=== PATIENT | male | born 1965 | race Caucasian/White ===

== ENCOUNTER 2016-05-02 16:35 | Emergency (ER) | payer OTHER ==
[2016-05-02] MEDS ORDERED: XYLOCAINE-MPF 1% INJ ONE (17:46)
[2016-05-02] MEDS ORDERED: XYLOCAINE 1% INJ ONE (17:46)
--- NOTE | 2016-05-02 17:52 | PROVIDER DOCUMENTATION ---
HPI-Rash/Wound/ReCheck - General Chief Complaint: Work Related Injury Stated Complaint: WORK RELATED INJURY Time Seen by Provider: 05/02/16 17:40 Source: patient Allergies/Adverse Reactions: Allergies Allergy/AdvReac Type Severity Reaction Status Date / Time No Known Allergies Allergy Verified 05/02/16 18:00 Home Medications: Home Medication List Medication Instructions Recorded Confirmed Last Taken Type Docusate Sodium [Colace] 400 mg PO QHS 08/12/13 05/02/16 05/01/16 History Lisinopril 20 mg PO DAILY 08/12/13 05/02/16 05/02/16 05:00 History Pantoprazole Sodium [Protonix] 20 mg PO DAILY 08/12/13 05/02/16 05/02/16 05:00 History Cyclobenzaprine [Flexeril] 10 mg PO QHS 05/02/16 05/02/16 05/01/16 History Hydroxyzine Pamoate [Vistaril] 25 mg PO QHS 05/02/16 05/02/16 05/01/16 History [place] Carbonate 900 mg PO DAILY 05/02/16 05/02/16 05/02/16 05:00 History Nabumetone [Relafen] 750 mg PO BID 05/02/16 05/02/16 05/02/16 05:00 History - History of Present Illness-Dermatology Nature of Presenting Problem: 51 year old WM presents with c/o laceration above left eye. pt reports he was attempting to leave work in a hurry and tripped over a radio sitting on the floor, falling and striking his left eyebrow onto a concrete floor. pt denies loc and has full recollection of the event. he denies head, neck or back pain. pt is in no distress. Location: reports: face Quality: reports: painful Severity: reports: mild Onset/Duration: reports: just prior to arrival Timing: reports: still present, improving Context/Associated Symptoms: reports: laceration Identifiable cause?: Yes Locality of Occurance: Work Similar Symptoms Previously?: No Recently seen or treated by another doctor?: No Review of Systems - Adult - REVIEW OF SYSTEMS - ADULT Constitutional: reports: no symptoms reported. denies: chills, fever, fatique Eyes: reports: see HPI, eye pain (left orbit pain), other. denies: discharge, blurred vision, double vision Ears, Nose, Mouth & Throat: reports: no symptoms reported. denies: ear discharge, ear pain, nose pain, loose teeth, throat pain, throat swelling Cardiovascular: reports: no symptoms reported. denies: chest pain, palpitations , syncope Respiratory: reports: no symptoms reported. denies: chronic cough, cough, shortness of breath, wheezing Gastrointestinal: reports: no symptoms reported. denies: abdominal pain, diarrhea, nausea, vomiting Genitourinary: reports: no symptoms reported. denies: dysuria, hematuria Musculoskeletal: reports: no symptoms reported. denies: bone pain, back pain, joint pain, joint swelling, neck pain Integumentary: reports: no symptoms reported, other (laceration). denies: hives , itching, skin sores/ulcer Neurological: reports: no symptoms reported. denies: ataxia, dizziness/vertigo , headache/migraines, loss of balance, numbness, paresthesia, seizure, slurred speech, syncope, tremors Psychiatric: reports: no symptoms reported Endocrine: reports: no symptoms reported Hematologic/Lymphatic: reports: no symptoms reported Allergic/Immunologic: reports: no symptoms reported All Other Systems: Reviewed and Negative Past History - Adult - PAST MEDICAL HISTORY-ADULT Review of Records: reports: Old Records Reviewed, Nursing Assessment Review, Medications Reviewed, Social history reviewed & non-contributory. Major Childhood Illnesses: reports: denies history Cardiovascular: reports: denies history Respiratory: reports: denies history Gastrointestinal: reports: GERD Obstetrical/Gynecological: reports: denies history Genitourinary: reports: denies history Musculoskeletal: reports: denies history Neurological: reports: denies history Psychiatric: reports: psychiatric problems Endocrine/Immune: reports: denies history Other Conditions: reports: denies history - FAMILY HISTORY Family History: reviewed, not pertinent - SOCIAL HISTORY Smoking: quit greater than 1 year Substance Use: none/never Alcohol Use Frequency: never Physical Exam-General - PHYSICAL EXAM-ADULT Initial Vital Signs Reviewed: Yes - CONSTITUTIONAL General Appearance: appears well, alert, no apparent distress. negative: mild distress, moderate distress, severe distress, lethargic, slow to respond, obtunded, combative - EYES Eyes: PERRL/EOMI, pink conjunctivae, other (left eyebrow with laceration, 3cm). negative: conjuctival exudate, pale conjunctivae, sclera injected, scleral icterus, subconjunctival hemorrhage - HEAD, EARS, NOSE, MOUTH & THROAT HENMT: normocephalic/atraumatic, moist mucous membranes, normal ENT inspection. negative: frontal tenderness, maxillary tenderness - NECK Neck: non-tender, full range of motion, supple, normal inspection. negative: C- spine tenderness, limited range of motion, tender lateral, tender midline - RESPIRATORY Respiratory: chest non-tender, lungs clear, normal breath sounds, no pleuratic chest pain, no respiratory distress, no accessory muscle use. negative: respiratory distress, decreased breath sounds, accessory muscle use, crackles, rales, rhonchi, stridor, wheezing - CARDIOVASCULAR Cardiovascular: normal peripheral pulses, regular rate, rhythm, no edema, no gallop, no JVD, no murmur - CHEST (BREASTS) Chest/Breast: no tenderness - GASTROINTESTINAL (ABDOMEN) Abdominal Exam: normal bowel sounds, non tender, soft - GENITOURINARY Male Genitalia: deferred Rectal Exam: deferred Hemoccult Exam: deferred - LYMPHATIC Lymphatic: no adenopathy - MUSCULOSKELETAL Back Exam: normal inspection, no CVA tenderness, no vertebral tenderness. negative: CVA tenderness, decreased range of motion, swelling, vertebral tenderness Extremity: normal range of motion, non-tender, normal gait, normal inspection, no pedal edema, no calf tenderness, normal capillary refill. negative: deformity, erythema, inflammation, swelling, tenderness Peripheral Pulses: radial (R): 3+, radial (L): 3+, dorsalis-pedis (R): 3+, dorsalis-pedis (L): 3+ - SKIN Integumentary: normal color, normal turgor, warm/dry, laceration(s) (left eyebrow) - NEUROLOGIC Neurologic: grossly normal, no motor/sensory deficits. negative: EOM palsy, focal weakness, motor weakness, sensory deficit - PSYCHIATRIC Psych/Mental Status: normal mood/affect, normal thought content, normal thought process, oriented x 3 Progress - PLAN OF CARE/RESULTS Progress/Plan/Lab Results: Orders Category Date Time Status Suture Tray Set-Up DIRECTED Care 05/02/16 17:46 Active [facility] URINE DRUG SCREEN Stat Lab 05/02/16 16:53 Uncollected Lidocaine 1% Pf [Xylocaine-Mpf 1%] Med 05/02/16 17:46 Discontinued See Dose Instructions INJ NOW ONE Lidocaine 1% [Xylocaine 1%] Med 05/02/16 17:46 Discontinued 20 ml INJ NOW ONE Vital Signs - 24 hr 05/02/16 16:47 Temperature 98.1 F Pulse Rate 79 Respiratory 18 Rate Blood Pressure 143/80 O2 Sat by Pulse 100 Oximetry Procedures - LACERATION/WOUND REPAIR/FB Left Eye Wound Location: Other: left eyebrow Wound Length: 3.5cm Wound's Depth, Shape: into muscle, irregular, flap, contused tissue Wound Explored/Foreign Body: clean, no foreign body found Irrigated with Saline?: Yes Prepped with: Hibiclens, Kit Utilized, Sterile Drapes Applied Anesthetic: 1%, Lidocaine/Xylocaine Volume of Anesthetic (ml's): 6 Wound Debrided: moderate Wound Repaired with: Sutures Suture Size/Type: 6.0, Non-Absorbable, Nylon Number of Sutures: 15 Layer Closure?: Yes Deep Layer Suture Size/Type: 5.0, Absorbable, Prolene Number Deep Layer Sutures: 5 Sterile Dressing Applied?: Yes Splint Applied?: No Sling Applied?: No Post Procedure Neurovascular Exam: Intact Departure - Departure Time of Disposition Order: 19:04 DIAGNOSIS: Laceration Fall Qualifiers: Encounter type: initial encounter Qualified Code(s): W19.XXXA - Unspecified fall, initial encounter Head injury Qualifiers: Encounter type: initial encounter Qualified Code(s): S09.90XA - Unspecified injury of head, initial encounter Disposition: HOME 01 Certified Medical Emergency: Emergent Condition: Stable Additional Instructions: Suture removal in 7 days. Keep dressing in place for 24 hours, then wash twice a day with mild soap and water. ED Follow Up Instructions: You have been treated by a care provider in the Emergency Department. These instructions are being provided to you so you can have an understanding of how to care for yourself upon discharge. Upon discharge from the Emergency Department, you are responsible for making arrangements for follow-up care by a physician of your choice. Take all prescribed medications as directed. Return to the Emergency Department immediately for any new or worsening symptoms. You may call the Physician Referral phone number at [phone] to obtain a list of Physicians who are taking new patients. Referrals: Anselmo Todd MD [Primary Care Provider] - Instructions: Head Injury, Adult, [id number], Laceration Care, Adult, Easy-to -Read Attestation - Physician/ DELFIN Attestation Patient care was provided by Advanced Practice Provider:: Yes Advanced Practice Provider:: Jef Toledo Advanced Practice Provider documentation review:: The Mid-level provider documentation, treatment plan and medical decision making was reviewed by the physician who agrees with all treatment and medical decision making by the MLP.
[2016-05-02 19:41] VITALS: BP 141/93
== END 2016-05-02 19:41 | disposition home or self-care (01) ==
LOC: ED 16:35
DX: S01.112A Laceration without foreign body of left eyelid and periocular area, initial encounter (principal); R51 Headache; H57.12 Ocular pain, left eye; K21.9 Gastro-esophageal reflux disease without esophagitis; Z79.899 Other long term (current) drug therapy; Z87.891 Personal history of nicotine dependence; W01.198A Fall on same level from slipping, tripping and stumbling with subsequent striking against other object, initial encounter